=== PATIENT | male | born 1995 | race Caucasian/White ===

== ENCOUNTER 2017-06-01 14:40 | Emergency (ER) ==
[~2017-06-01] VITALS: Ht 185.4 cm; Wt 98.2 kg
[2017-06-01 14:49] VITALS: BP 139/64
== END 2017-06-01 16:39 | disposition left against medical advice (07) ==
LOC: M ED 14:40
DX: M54.9 Dorsalgia, unspecified (principal); M25.552 Pain in left hip; Z53.21 Procedure and treatment not carried out due to patient leaving prior to being seen by health care provider

== ENCOUNTER 2017-06-04 09:24 | Emergency (ER) | payer OTHER ==
[~2017-06-04] VITALS: Ht 185.4 cm; Wt 90.9 kg
[2017-06-04] MEDS ORDERED: IBUP-1022 PO (09:44)
[2017-06-04] MEDS ORDERED: KETOROLAC 60 MG/2 ML VIAL (J1885) IM ONE (11:15)
--- NOTE | 2017-06-04 11:37 | REP ---
Lumbar spine five views: There are no comparisons. There is mild scoliosis convex left, possibly positional. Vertebral body heights, interspacing alignment are normal except for mild disc space narrowing at L5 S1. This could be congenital or secondary to degenerative disc disease. There is no spondylolysis or spondylolisthesis. The pedicles, facets and sacroiliac articulations are unremarkable. Impression: Mild scoliosis. Mild L5 S1 disc space narrowing, congenital versus degenerative disc disease. Signed by Dashawn Pascal MD 06/04/2017 11:29 A
[2017-06-04] MEDS ORDERED: IBUP80TA PO (12:02)
[2017-06-04 12:09] VITALS: BP 146/71
== END 2017-06-04 12:12 | disposition home or self-care (01) ==
LOC: M ED 09:24
DX: M54.10 Radiculopathy, site unspecified (principal); M41.9 Scoliosis, unspecified
CPT/HCPCS: 72110; 96372; 99283; J1885

== ENCOUNTER 2017-11-03 09:10 | Emergency (ER) | payer OTHER ==
[2017-11-03 09:29] LABS: AMORPHOUS SEDIMENT RFX SMALL (NEGATIVE); KETONE, URINE AUTO RFX NEGATIVE (NEGATIVE); LEUKOCYTE ESTERASE UR AUTO RFX NEGATIVE (NEGATIVE); NITRITE, URINE AUTO RFX NEGATIVE (NEGATIVE); RBC, URINE AUTO RFX 1 /HPF (0-3); SPECIFIC GRAVITY UR AUTO RFX 1.016 (1.002-1.035); SQUAM EPITHELIAL CELL UR AURFX 0 /HPF (0-6); WBC, URINE AUTO RFX 0 /HPF (0-3)
[2017-11-03] MEDS: NS 1,000 ML IV ×2 (09:39→12:31)
[2017-11-03] MEDS: ONDANSETRON 4MG/2ML VIAL (J2405) IV (09:39)
[2017-11-03 09:54] LABS: BASO % 0.5 % (0.0-1.0); EOS # 0.1 10^3/uL (0.0-0.50); HEMATOCRIT 43.6 % (42.0-52.0); HEMOGLOBIN 15.2 g/dl (14.0-18.0); IMMATURE GRANULOCYTE % 0.3 % (0-3.0); LYMPH # 2.1 10^3/uL (1.5-6.5); LYMPH % 35.6 % (24.0-44.0); MEAN CORPUSCULAR HEMOGLOBIN 30.9 pg (27.0-33.0); MEAN CORPUSCULAR HGB CONC 34.9 g/dl (32.0-36.5); MEAN CORPUSCULAR VOLUME 88.6 fl (80.0-96.0); MONO # 0.5 10^3/uL (0.0-0.8); MONO % 8.5 % (0.0-5.0); NEUTROPHILS # 3.1 10^3/uL (1.8-7.7); NEUTROPHILS % 54.1 % (36.0-66.0); PLATELET COUNT, AUTOMATED 313 10^3/uL (150-450); RED BLOOD COUNT 4.92 10^6/uL (4.30-6.10); RED CELL DISTRIBUTION WIDTH 11.9 % (11.5-14.5); WHITE BLOOD COUNT 5.8 10^3/uL (4.0-10.0)
[2017-11-03 10:34] LABS: ALBUMIN 3.8 GM/DL (3.2-5.2); ALBUMIN/GLOBULIN RATIO 0.97 (1.00-1.93); ALKALINE PHOSPHATASE 79 U/L (45-117); ALT/SGPT 27 U/L (12-78); ANION GAP 7 MEQ/L (8-16); AST/SGOT 16 U/L (7-37); BILIRUBIN,DIRECT < 0.1 MG/DL (0.0-0.2); BILIRUBIN,TOTAL 0.4 MG/DL (0.2-1.0); BLOOD UREA NITROGEN 10 MG/DL (7-18); CARBON DIOXIDE LEVEL 28 MEQ/L (21-32); CHLORIDE LEVEL 105 MEQ/L (98-107); CREATININE FOR GFR 0.81 MG/DL (0.70-1.30); GLUCOSE, FASTING 92 MG/DL (70-100); LIPASE 91 U/L (73-393); POTASSIUM SERUM 4.1 MEQ/L (3.5-5.1); SODIUM LEVEL 140 MEQ/L (136-145); TOTAL PROTEIN 7.7 GM/DL (6.4-8.2)
[2017-11-03] MEDS: METOCLOPRAMIDE INJ 10MG/2ML VIAL (J2765) IV (12:32)
== END 2017-11-03 13:23 | disposition home or self-care (01) ==
LOC: M ED 09:10
DX: A08.4 Viral intestinal infection, unspecified (principal)
CPT/HCPCS: J2405